=== PATIENT | male | born 1945 | race Caucasian/White ===

== ENCOUNTER 2018-07-26 06:00 | Day surgery (SDC) | payer MEDICARE ==
[~2018-07-26 06:00] MED LIST: ANCEF/STERILE WATER 2 GM/20 ML 2 GM/20 ML SYRINGE IV SCH
[2018-07-26] MEDS ORDERED: LACTATED RINGERS 1,000 ML IV SCH (06:17)
[2018-07-26] MEDS ORDERED: MARCAINE-EPI 0.5%-1:200,000 INFILTRATI ONE ×2 (06:29→08:30)
[2018-07-26] MEDS ORDERED: DIPRIVAN 10 MG/ML IV ONE (07:12)
[2018-07-26] MEDS ORDERED: XYLOCAINE MPF 2% ONE (07:12)
[2018-07-26] MEDS ORDERED: SUBLIMAZE ONE (07:12)
[2018-07-26] MEDS ORDERED: ZEMURON IV ONE (07:17)
[2018-07-26] MEDS ORDERED: ceFAZolin 2 GM in NACL 0.9% 100 ML IV ONE (08:00)
[2018-07-26] MEDS ORDERED: NEO SYNEPHRINE/NS Syringe(OR USE) IV ONE (08:14)
[2018-07-26] MEDS ORDERED: NACL 0.9% IR ONE (08:30)
--- NOTE | 2018-07-26 08:36 | Discharge Summary ---
Short Stay Discharge Plan Activity: other (july d/c when stable. reg diet. keep packing x 48 hrs. begin sitz bath qd on Sunday am. remove packing while in sitz bath. may also clean wd in shower with sponge, soap and water qd) Diet: regular Wound: per your surgeon's advice Additional Instructions: aleve I po q 6-8 hrs prn for breakthrough pain Follow up with: QUINCY MESSER MD [Staff Physician] - 07/29/18
[2018-07-26] MEDS ORDERED: NARCAN 0.4 MG/1 ML IV PRN (08:47)
[2018-07-26] MEDS ORDERED: SUBLIMAZE IV PRN (08:47)
[2018-07-26] MEDS ORDERED: DILAUDID IV PRN (08:47)
[2018-07-26] MEDS ORDERED: ZOFRAN IV PRN (08:47)
--- NOTE | 2018-07-26 08:53 | Operative Report ---
PREOPERATIVE DIAGNOSIS: Left buttock nodule. POSTOPERATIVE DIAGNOSIS: Sebaceous cyst, pending final pathology. PROCEDURE: Excision of aforementioned cyst. SURGEON: Rg Jackson MD ANESTHESIA: General. ESTIMATED BLOOD LOSS: Minimal. DRAINS: None. COMPLICATIONS: None. DESCRIPTION OF PROCEDURE: The patient was taken to the operating room and placed in jackknife position. He was prepped and draped in usual sterile fashion. The palpable nodule had been outlined with a marking pencil. A 0.5% Marcaine with epinephrine was infiltrated over the area to be incised. A 15 blade was used to incise skin and subcutaneous tissue. Double skin hooks were used to retract the skin. Dissection was then carried out along the subcutaneous and the nodular capsule. Upon dissection, sebum was noted consistent with a sebaceous cyst. The entire nodule was removed en bloc including capsule. The nodule was quite deep and extended down to, but did not include the muscle fascia. Aerobic and anaerobic cultures were taken of the sebum. Specimen was sent to pathology. The area was irrigated copiously and dried. Checked for hemostasis and noted to be dry. The abscess cavity was then packed with half-inch iodoform gauze. Fluffs and pressure dressings applied. The patient tolerated the procedure well and left OR in stable condition. JOB# [id number] EDUARDO/VANNESA
[2018-07-26 11:12] VITALS: BP 103/65
--- NOTE | 2018-07-27 09:24 | Post Anesthesia Evaluation ---
- Post Anesthesia Evaluation Patient Participated: Yes Airway Patent: Yes Stable Respiratory Function: Yes Nausea/Vomiting: No Temp > 96.8F: Yes Pain Manageable: Yes Adequeate Hydration: Yes Anesthesia Complications: No
--- NOTE | 2018-07-27 09:24 | Anesthesia Consultation ---
Anesthesia Consult and Med Hx Date of service: 07/26/18 - Airway Anesthetic Teeth Evaluation: Dentures ROM Head & Neck: Adequate Mental/Hyoid Distance: Adequate Mallampati Class: Class II Intubation Access Assessment: Good - Pulmonary Exam CTA: Yes - Cardiac Exam Cardiac Exam: RRR - Pre-Operative Health Status ASA Pre-Surgery Classification: ASA3 Proposed Anesthetic Plan: General - Pulmonary Hx Smoking: Yes (QUIT OVER 20 YRS AGO) - Central Nervous System Hx Psychiatric Problems: No - Other Systems Hx Alcohol Use: Yes Hx Substance Use: No
== END 2018-07-26 10:45 | disposition home or self-care (01) ==
LOC: OR 06:00
PROVIDERS: ATTEND Surgery
DX: L72.0 Epidermal cyst (principal); L72.3 Sebaceous cyst; Z79.82 Long term (current) use of aspirin; Z79.899 Other long term (current) drug therapy; Z87.891 Personal history of nicotine dependence; Z72.89 Other problems related to lifestyle; Z98.890 Other specified postprocedural states
CPT/HCPCS: 11403; 87075; 87116; 88305; J2370; J2704; J3010; J7120; 88304